=== PATIENT | female | born 1935 | race Caucasian/White ===

== ENCOUNTER 2016-08-04 08:50 | Emergency (ER) | payer MEDICARE ==
[2016-08-04] MEDS ORDERED: IOPAMIDOL 370 (76%) 100 ML VIAL IV ONE (08:51)
[2016-08-04] MEDS ORDERED: ALBUTEROL/IPRATROPIUM 2.5/0.5 MG 3 ML/EACH DOSE ONE (09:29)
[2016-08-04 09:36] LABS: VENOUS BLOOD GAS BASE EXCESS -2.6 mmol/L (-2.0-2.0); VENOUS BLOOD GAS HCO3 21.9 mmol/L (22.0-27.0)
[2016-08-04 09:38] LABS: ABSOLUTE NEUTROPHIL COUNT 8.3 K/mm3 (1.8-7.7); BASO # 0.1 K/mm3 (0.0-0.2); BASO % 0.5 % (0.2-1.0); EOS # 0.3 (0.0-0.5); EOS % 2.3 % (0.9-2.9); HEMATOCRIT 36.8 % (37.0-47.0); HEMOGLOBIN 11.7 gm/l (12.0-16.0); IMM NEUT% 0.4 % (0-1); LYMPH # 1.5 (1.0-4.8); MEAN CELL VOLUME 95.1 fl (81.0-99.0); MEAN CORPUSCULAR HEMOGLOBIN 30.2 pg (27.0-31.0); MEAN CORPUSCULAR HGB CONC 31.8 g/dl (33.0-37.0); MEAN PLATELET VOLUME 10.4 fl (7.4-10.4); NEUT % 74.8 % (43-75); PLATELET COUNT 333 K/mm3 (130-400); RED CELL DISTRIBUTION WIDTH 12.5 % (11.5-14.5)
[2016-08-04 10:00] LABS: CALCIUM 9.9 mg/dL (8.6-10.3)
--- NOTE | 2016-08-04 10:28 | RAD ---
Exam: Two-view chest COMPARISON: 09/18/2006 INDICATION: Cough for 2 months, shortness of breath. FINDINGS: PA and lateral views of the chest were obtained. Cardiomegaly is present. Opacity along the left ventricular apex is noted, compatible with epicardial fat pad. Lungs are clear. There is no pleural effusion. A few bridging osteophytes are noted within the thoracic spine. IMPRESSION: Cardiomegaly. No acute pulmonary process.
--- NOTE | 2016-08-04 11:44 | CT ---
ADDENDUM #1 TECHNICAL ADDENDUM: Three-dimensional imaging was not performed. ORIGINAL REPORT CHEST CTA HISTORY: Cough and chest pain. TECHNIQUE: Following the administration of 80 cc Isovue-370 intravenous contrast, contiguous axial images were acquired from the thoracic inlet to the diaphragmatic hiatus for CT pulmonary angiography. FINDINGS: PULMONARY ARTERIAL TREE: Technically adequate enhancement: No dominant filling defects. THORACIC AORTA: Moderate atherosclerotic calcifications. HEART: Moderately severe pericardial effusions. LUNGS: Minimal emphysema of the upper lobes. Minor lower lobe bronchial wall thickening. I basilar atelectasis with small left pleural effusion. 1.1 cm lesion of the right lung base. ADAM AND MEDIASTINUM: No abnormally enlarged lymph nodes. AXILLAE: No grossly enlarged lymph nodes. UPPER ABDOMEN: Cortical scarring of the right kidney. Multiple left renal cysts up to 2.3 cm in size. Relative prominence of a portacaval lymph node 2.1 x 1.4 cm in size. OSSEOUS STRUCTURES: No grossly destructive lesions. Thoracic disc degeneration. IMPRESSION: 1. No CTA evidence of proximal order pulmonary embolus. 2. Moderate pericardial effusion, or pericarditis is possible. 3. Small left pleural effusion. Recommend 3 month follow-up to assess a 1.1 cm lesion of the right lung base. Minor emphysema. 4. Left-sided renal cysts. Prominence of a portacaval lymph node. Findings discussed with Dr. Landon of the Emergency Medicine clinical service on 08/04/2016 at 1140 hours.
== END 2016-08-04 16:30 | disposition home or self-care (01) ==
LOC: ED 08:50
DX: J98.01 Acute bronchospasm (principal); I31.3 Pericardial effusion (noninflammatory); I10 Essential (primary) hypertension